=== PATIENT | female | born 1995 | race Caucasian/White ===

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

== ENCOUNTER 2017-02-26 16:41 | Emergency (ER) | payer MEDICAID ==
[2017-02-26 16:48] VITALS: BP 158/95
--- NOTE | 2017-02-26 16:54 | ED Physician Documentation ---
PD HPI UPPER EXT INJURY - Stated complaint Stated Complaint: LEFT THUMB PX - Chief complaint Chief Complaint: Ext Problem - History obtained from History obtained from: Patient - History of Present Illness Location: Left, Finger (thumb base and wrist) Type of injury: Other (has small kids at home and does frequent lifting/use of hands.). No: Fall, Twist Timing - onset: How many months ago (1) Timing - duration: Months (1) Timing - details: Gradual onset, Still present, Waxing and waning Worsened by: Moving (lifting left thumb or gripping/pulling down of thumb.) Associated symptoms: No: Weakness, Numbness, Swelling Similar symptoms before: Has not had sx before Recently seen: Clinic (Dx with tendonitis of EPL. Given velcro thumb spica splint but does not like to wear it as restricts use of her hand.) Review of Systems Constitutional: denies: Fever, Chills Skin: denies: Rash, Lesions Neurologic: denies: Focal weakness, Numbness PD PAST MEDICAL HISTORY - Past Medical History Musculoskeletal: None - Past Surgical History Past Surgical History: No - Present Medications Home Medications: Ambulatory Orders Medication Instructions Recorded Confirmed Ibuprofen [Motrin] 600 mg PO TID #30 tab 02/26/17 - Allergies Allergies/Adverse Reactions: Allergies Allergy/AdvReac Type Severity Reaction Status Date / Time No Known Drug Allergies Allergy Verified 02/26/17 16:49 - Social History Does the pt smoke?: Yes Smoking Status: Current every day smoker Does the pt drink ETOH?: No Does the pt have substance abuse?: No - Immunizations Immunizations are current?: Yes - POLST Patient has POLST: No PD ED PE NORMAL - Vitals Vital signs reviewed: Yes - General General: Alert and oriented X 3, No acute distress, Well developed/nourished - Derm Derm: Normal color, Warm and dry, No rash - Extremities Extremities: Other (left thumb and wrist tender along dorsal EPL area, with pain on flexion/stretch of thumb, and with extension against resistance. ) - Neuro Neuro: No motor deficit, No sensory deficit Results - Vitals Vitals: Oxygen O2 Source Room air - Rads (name of study) wrist/thumb Radiology: Prelim report reviewed, EMP read contemporaneously (no acute process) PD MEDICAL DECISION MAKING - ED course Complexity details: reviewed results, considered differential, d/w patient Departure - Departure Disposition: 01 Home, Self Care Clinical Impression: Tendinitis, de Quervain's Thumb pain Qualifiers: Laterality: left Qualified Code(s): M79.645 - Pain in left finger(s) Condition: Stable Record reviewed to determine appropriate education?: Yes Instructions: ED De Quervain Tenosynovitis, De Quervain Tenosynovitis Tx Follow-Up: Luiz Wilhelm MD [Provider Admit Priv/Credential] - Prescriptions: Ibuprofen [Motrin] 600 mg PO TID #30 tab Comments: Use the thumb splint you have with daily activity and use of your hands to reduce the irritation of the thumb tendon. You do not have to have the splint on all the time. Ibuprofen 600 mg 2-3 times a day for the next 7-10 days with food. To that add Tylenol if needed for pain. Recheck if not better in the next week and this can be with your primary care or with orthopedics. Discharge Date/Time: 02/26/17 17:56
[2017-02-26] MEDS ORDERED: NAPROXEN 250 MG TABLET PO STA (17:06)
[2017-02-26] MEDS ORDERED: NAPROXEN 250 MG TABLET PO ONE (17:21)
--- NOTE | 2017-02-26 17:50 | XRAY Preliminary Report ---
Exam: XR Wrist 4 View LT IMPRESSION: Normal wrist radiography. [facility] SITE ID: [id number]
--- NOTE | 2017-02-26 17:52 | XRAY Report ---
EXAM: LEFT WRIST RADIOGRAPHY EXAM DATE: 02/26/2017 05:30 PM. CLINICAL HISTORY: Thumb base/wrist pain for weeks. COMPARISON: None. TECHNIQUE: 4 views. FINDINGS: Bones: Normal. No fractures or bone lesions. Joints: Normal. No subluxations. Soft Tissues: Normal. No soft tissue swelling. IMPRESSION: Normal wrist radiography. [facility] Referring Provider Line: [phone] SITE ID: [id number]
== END 2017-02-26 17:56 | disposition home or self-care (01) ==
LOC: ED 16:41
DX: M65.4 Radial styloid tenosynovitis [de Quervain] (principal); M79.645 Pain in left finger(s)
CPT/HCPCS: 73110; 99283; A9270

== ENCOUNTER 2017-07-02 11:51 | Emergency (ER) | payer MEDICAID ==
[2017-07-02 11:58] VITALS: BP 128/87
[2017-07-02] MEDS ORDERED: LIDOCAINE VISCOUS 2% 15 ML UDC MM STA (13:15)
[2017-07-02] MEDS ORDERED: MAG HYDROX/AL HYDROX/SIMETH 30 ML UDC PO STA (13:15)
--- NOTE | 2017-07-02 13:17 | ED Physician Documentation ---
PD HPI ABD PAIN - Stated complaint Stated Complaint: ABD PX - Chief complaint Chief Complaint: Abd Pain - History obtained from History obtained from: Patient - History of Present Illness Timing - onset: Other (2 days of constant but waxing and waning epigastric pain radiating to high lateral upper quadrants. She has decreased appetite but does not note increased pain after eating. The pain has been constant. It is associated with nausea but no vomiting. She is chronically constipated without acute changes in her bowel movements. She has never had this before, no history of abdominal surgeries.) Review of Systems Ten Systems: 10 systems reviewed and negative Constitutional: denies: Fever, Chills Cardiac: denies: Chest pain / pressure, Palpitations Respiratory: denies: Dyspnea, Cough GI: reports: Abdominal Pain, Nausea, Constipation (chronic). denies: Vomiting PD PAST MEDICAL HISTORY - Past Medical History Past Medical History: No Musculoskeletal: None - Past Surgical History Past Surgical History: No - Present Medications Home Medications: Ambulatory Orders Medication Instructions Recorded Confirmed Ibuprofen [Motrin] 800 mg PO Q8H PRN #30 tablet 07/02/17 Omeprazole [PriLOSEC] 20 mg PO DAILY #14 capsule 07/02/17 Ondansetron HCl [Zofran] 4 mg PO Q6H PRN #10 tablet 07/02/17 - Allergies Allergies/Adverse Reactions: Allergies Allergy/AdvReac Type Severity Reaction Status Date / Time No Known Drug Allergies Allergy Verified 07/02/17 11:57 - Social History Does the pt smoke?: Yes Smoking Status: Current every day smoker Does the pt drink ETOH?: No Does the pt have substance abuse?: No - Family History Family history: reports: Non contributory - Immunizations Immunizations are current?: Yes - POLST Patient has POLST: No PD ED PE NORMAL - Vitals Vital signs reviewed: Yes - General General: Alert and oriented X 3, No acute distress - HEENT HEENT: PERRL, EOMI - Neck Neck: Supple, no meningeal sign, No bony TTP - Cardiac Cardiac: RRR, No murmur - Respiratory Respiratory: No respiratory distress, Clear bilaterally - Abdomen Abdomen: Normal bowel sounds, Soft, Other (Mild epigastric tenderness without significant right upper quadrant tenderness or Lindo sign.) - Derm Derm: Normal color, Warm and dry - Extremities Extremities: No edema, No calf tenderness / cord - Neuro Neuro: Alert and oriented X 3, Normal speech - Psych Psych: Normal mood, Normal affect Results - Vitals Vitals: Vital Signs - 24 hr 07/02/17 11:53 Temperature 36.6 C Heart Rate 98 Respiratory 20 Rate Blood Pressure 128/87 H O2 Saturation 100 Oxygen O2 Source Room air - Labs Labs: Laboratory Tests 07/02/17 07/02/17 07/02/17 13:05 13:28 13:28 WBC 10.6 RBC 5.40 Hgb 15.9 Hct 46.0 MCV 85.3 MCH 29.4 MCHC 34.5 RDW 13.0 Plt Count 391 MPV 9.2 Neut # 7.7 H Lymph # 2.3 Greer # 0.4 Eos # 0.1 Baso # 0.1 Absolute Nucleated RBC 0.01 Nucleated RBC % 0.1 Sodium 138 Potassium 3.8 Chloride 104 Carbon Dioxide 24 Anion Gap 10.0 BUN 9 Creatinine 0.6 Estimated GFR (MDRD) 129 Glucose 94 Calcium 9.9 Total Bilirubin 0.3 AST 24 ALT 21 Alkaline Phosphatase 92 Total Protein 8.9 H Albumin 4.9 Globulin 4.0 Albumin/Globulin Ratio 1.2 Lipase 19 L Urine Color YELLOW Urine Clarity HAZY Urine pH 6.0 Ur Specific [place] <=1.005 Urine Protein NEGATIVE Urine Glucose (UA) NEGATIVE Urine Ketones NEGATIVE Urine Occult Blood TRACE-INTA Urine Nitrite NEGATIVE Urine Bilirubin NEGATIVE Urine Urobilinogen 0.2 (NORMAL) Ur Leukocyte Esterase NEGATIVE Urine RBC 0-5 Urine WBC 0-3 Ur Epithelial Cells FEW Transitional Ur Squamous Epith Cells MANY Squamous H Urine Bacteria Many H Ur Microscopic Review INDICATED Urine Culture Comments NOT INDICATED Urine HCG, Qual NEGATIVE - Rads (name of study) Abd sono Radiology: EMP read contemporaneously (normal) CT A/P Radiology: EMP read contemporaneously (3.3cm R ovarian cyst, otherwise NAD) PD MEDICAL DECISION MAKING - ED course ED course: Upper abdominal pain, probably most consistent with gastritis, however she had no relief with a GI cocktail. She was driving and given the gastritis was now less likely this was followed by ibuprofen. Lab work was basically unremarkable. We discussed potentially watchful waiting at home versus a CT. She initially opted for watchful waiting at home after discussion of the risks of CT but then opted for the CT. This showed only a right ovarian cyst which is somewhat inconsistent with her location of pain. She remained nontender and well-appearing though. Departure - Departure Disposition: 01 Home, Self Care Clinical Impression: Abdominal pain Qualifiers: Abdominal location: epigastric Qualified Code(s): R10.13 - Epigastric pain Condition: Good Record reviewed to determine appropriate education?: Yes Instructions: ED Abdominal Pain Unkn Cause Follow-Up: MIR CALL MD [Provider Admit Priv/Credential] - (in 1 week if upper abd pain is persistent) [facility] [Provider Group] (for followup with consideration for repeat ultrasound in 6 weeks. Also for routine care, i.e pap smear.) Prescriptions: Ibuprofen [Motrin] 800 mg PO Q8H PRN #30 tablet PRN Reason: PAIN &/OR FEVER Omeprazole [PriLOSEC] 20 mg PO DAILY #14 capsule Ondansetron HCl [Zofran] 4 mg PO Q6H PRN #10 tablet PRN Reason: Nausea / Vomiting Comments: Return if worsening or if new symptoms develop. Follow-up with her neckties painter for routine care and reassessment of the right ovarian cyst. And if your upper abdominal pain is persistent, follow-up with the surgeon for evaluation for upper endoscopy. Your blood pressure was elevated today on check into the emergency department. This does not mean that you have hypertension, it is a common phenomenon to come to the emergency department and have elevated blood pressure. I recommend that you see your primary care physician within the week to have it rechecked when you are feeling better.
[2017-07-02 13:22] LABS: BILIRUBIN,URINE NEGATIVE (NEGATIVE); GLUCOSE, URINE (UA) NEGATIVE (NEGATIVE); KETONES,URINE (UA) NEGATIVE (NEGATIVE); LEUKOCYTE ESTERASE, URINE NEGATIVE (NEGATIVE); NITRITE,URINE NEGATIVE (NEGATIVE); OCCULT BLOOD,URINE TRACE-INTA (NEGATIVE); PROTEIN,URINE NEGATIVE (NEGATIVE); UROBILINOGEN,URINE 0.2 (NORMAL) E.U./dL (NORMAL)
[2017-07-02 13:23] LABS: CLARITY,URINE HAZY (CLEAR); HCG UR QUAL NEGATIVE
[2017-07-02 13:34] LABS: BACTERIA,URINE Many /HPF (None Seen); EPITHELIAL CELLS,UR FEW Transitional /HPF (<= Few); RBC,URINE 0-5 /HPF (0-5); SQUAMOUS EPITHELIAL CELL,UR MANY Squamous (<= Few)
[2017-07-02 13:35] LABS: BASOPHILS # (AUTO) 0.1 10^3/uL (0.0-0.1); BASOPHILS % (AUTO) 0.7 %; EOSINOPHILS # (AUTO) 0.1 10^3/uL (0.0-0.7); EOSINOPHILS % (AUTO) 0.7 %; HGB - HEMOGLOBIN 15.9 g/dL (12.0-16.0); LYMPHOCYTES # (AUTO) 2.3 10^3/uL (1.5-3.5); LYMPHOCYTES % (AUTO) 22.1 %; MEAN CORPUSCULAR HEMOGLOBIN 29.4 pg (27.0-31.0); MEAN CORPUSCULAR HGB CONC 34.5 g/dL (32.0-36.0); MEAN CORPUSCULAR VOLUME 85.3 fL (81.0-99.0); MEAN PLATELET VOLUME 9.2 fL (7.9-10.8); MONOCYTES # (AUTO) 0.4 10^3/uL (0.0-1.0); MONOCYTES % (AUTO) 4.1 %; NEUTROPHILS # (AUTO) 7.7 10^3/uL (1.5-6.6); NEUTROPHILS % (AUTO) 72.4 %; PLT - PLATELET COUNT 391 10^3/uL (130-450); WHITE BLOOD COUNT 10.6 x10^3/uL (4.8-10.8)
[2017-07-02 13:46] LABS: ALBUMIN 4.9 g/dL (3.2-5.5); ALBUMIN/GLOBULIN RATIO 1.2 (1.0-2.2); BILIRUBIN,TOTAL 0.3 mg/dL (0.2-1.0); CALCIUM 9.9 mg/dL (8.5-10.3); CREATININE 0.6 mg/dL (0.4-1.0); TOTAL PROTEIN 8.9 g/dL (6.7-8.2)
[2017-07-02] MEDS ORDERED: IBUPROFEN 800 MG TABLET PO STA (13:50)
--- NOTE | 2017-07-02 14:41 | Ultrasound Report ---
EXAM: ABDOMEN ULTRASOUND LIMITED, RUQ EXAM DATE: 07/02/2017 02:28 PM. CLINICAL HISTORY: Epigastric pain. COMPARISON: None. TECHNIQUE: Real-time scanning was performed with static images obtained. FINDINGS: Liver: Normal in size and echotexture. Main portal vein flow: Hepatopetal. Gallbladder: Normal. No stones, wall thickening, or sonographic Lindo's sign. Biliary System: CBD measures 3 mm. No intrahepatic or extrahepatic ductal dilatation. Other: Right kidney measures 11.4 cm without hydronephrosis. IMPRESSION: Normal. No cholelithiasis or cholecystitis. [facility] Referring Provider Line: [phone] SITE ID: [id number]
[2017-07-02] MEDS ORDERED: IOPAMIDOL-300 100 ML VIAL ONE (14:58)
[2017-07-02] MEDS ORDERED: IOPAMIDOL-300 100 ML VIAL IVP ONE (15:26)
--- NOTE | 2017-07-02 15:44 | CT Report ---
EXAM: CT ABDOMEN AND PELVIS EXAM DATE: 07/02/2017 03:27 PM. CLINICAL HISTORY: IV only, upper abd pain. COMPARISONS: None. TECHNIQUE: Routine helical CT imaging was performed through the abdomen and pelvis. IV contrast: 100M L OF ISOVUE 300. Enteric contrast: No. Reconstructions: Coronal and sagittal. In accordance with CT protocol optimization, one or more of the following dose reduction techniques w ere utilized for this exam: automated exposure control, adjustment of mA and/or KV based on patient s ize, or use of iterative reconstructive technique. FINDINGS: Lung Bases: Unremarkable. Liver: Normal. No masses. Gallbladder/Bile Ducts: Unremarkable. Spleen: Normal. Pancreas: Normal. Adrenal Glands: Normal. Kidneys: Normal. No masses or hydronephrosis. Peritoneal Cavity/Bowel: Normal. No free fluid, free air or adenopathy. No masses or acute inflammato ry process. The appendix is well visualized and normal. Pelvic Organs: Normal-appearing bladder, moderately distended. Findings consistent with a 3.3 cm righ t ovarian cyst. Vasculature: No aneurysms or other significant abnormality. Bones: No significant abnormality. Other: None. IMPRESSION: 1. Findings consistent with a 3.3 cm right ovarian cyst. 2. Otherwise, normal CT of the abdomen and pelvis. [facility] Referring Provider Line: [phone] SITE ID: [id number]
== END 2017-07-02 16:04 | disposition home or self-care (01) ==
LOC: ED 11:51
DX: R10.13 Epigastric pain (principal); R03.0 Elevated blood-pressure reading, without diagnosis of hypertension; N83.201 Unspecified ovarian cyst, right side; F17.200 Nicotine dependence, unspecified, uncomplicated
CPT/HCPCS: 36415; 74177; 76705; 80053; 81001; 81025; 83690; 85025; 99283; A9270; Q9967; 81003; 87086

== ENCOUNTER 2017-08-08 19:09 | Outpatient (CLI) | payer MEDICAID | END 2017-08-08 19:10 | disposition home or self-care (01) | LOC: LAB.R 19:09 | PROVIDERS: ATTEND Registered Nurse | DX: Z11.3 Encounter for screening for infections with a predominantly sexual mode of transmission (principal) | CPT/HCPCS: 87491; 87591 ==

== ENCOUNTER 2018-02-21 16:35 | Outpatient (CLI) | payer MEDICAID ==
--- NOTE | 2018-02-22 08:15 | Ultrasound Report ---
Reason: ENCTR FOR TEST, RESULT POSITIVE Procedure Date: 02/21/2018 Accession Number: [id number] / [id number] Procedure: US - OB First Trimester CPT Code: FULL RESULT: EXAM: FIRST TRIMESTER OBSTETRIC ULTRASOUND (Less than 11 weeks) EXAM DATE: 02/21/2018 05:39 PM. CLINICAL HISTORY: ENCTR FOR TEST, RESULT POSITIVE. LMP: 12/07/2017. COMPARISONS: None. TECHNIQUE: Transabdominal ultrasound examination with static image documentation. CLINICAL DATES: EGA 10 weeks 6 days with JAMES 09/13/2018 based on LMP. ASSESSMENT: Gestational Sac: Single intrauterine. Mean gestational sac diameter: 55 mm. Embryo: CRL (crown-rump length) 42.4 mm = 10 weeks 6 days. Cardiac activity: 167 beats per minute. Yolk sac: 4.8 mm. Amniotic fluid: Not accurately assessed at this gestational age. Early placenta: Not visible at this gestational age. Other: 1.9 x 2.3 x 1.2 cm perigestational fluid collection. MATERNAL STRUCTURES: Uterus: Anteverted. Unremarkable. Cervix: Closed. Right Ovary/Adnexa: Unremarkable. The ovary measures 3.5 x 2.6 x 2.4 cm, volume 11.4 cc. Left Ovary/Adnexa: Unremarkable. The ovary measures 3.9 x 1.8 x 2.5 cm, volume 9.1 cc. Free Fluid: None. Other: None. IMPRESSION: 1. Single viable intrauterine at EGA 10 weeks 6 days with JAMES 09/13/2018 based on crown-rump length, which is concordant with clinical dates. 2. Assigned dating is JAMES 09/13/2018 based on LMP (and current ultrasound ). 3. Findings consistent with a 1.9 x 2.3 x 1.2 cm perigestational hemorrhage. [facility]
== END 2018-02-21 16:36 | disposition home or self-care (01) ==
LOC: DI 16:35
PROVIDERS: ATTEND Obstetrics & Gynecology
DX: Z34.91 Encounter for supervision of normal pregnancy, unspecified, first trimester (principal)
CPT/HCPCS: 76801

== ENCOUNTER 2018-03-07 08:00 | Outpatient (CLI) | payer MEDICAID ==
[2018-03-07 16:23] LABS: MUDS CUTOFF CONCENTRATIONS CUTOFF CONC BELOW:
[2018-03-07 16:41] LABS: AMPHETAMINE SCREEN,URINE NEGATIVE (NEGATIVE); BENZODIAZEPINES SCREEN, URINE NEGATIVE (NEGATIVE); COCAINE SCREEN URINE NEGATIVE (NEGATIVE); METHADONE SCREEN, URINE NEGATIVE (NEGATIVE); METHAMPHETAMINES SCREEN, URINE NEGATIVE (NEGATIVE); OPIATE SCREEN, URINE NEGATIVE (NEGATIVE); OXYCODONE SCREEN, URINE NEGATIVE (NEGATIVE); PROPOXYPHENE SCREEN, URINE NEGATIVE (NEGATIVE); TRICYCLIC ANTIDEPRESSANT,URINE NEGATIVE (NEGATIVE)
== END 2018-03-07 08:01 | disposition home or self-care (01) ==
LOC: LAB.R 08:00
PROVIDERS: ATTEND Obstetrics & Gynecology
DX: Z36.9 Encounter for antenatal screening, unspecified (principal)
CPT/HCPCS: 80306; 87491; 87591

== ENCOUNTER 2018-03-10 10:42 | Outpatient (CLI) | payer MEDICAID ==
[2018-03-10 11:44] LABS: BILIRUBIN,URINE NEGATIVE (NEGATIVE); GLUCOSE, URINE (UA) NEGATIVE (NEGATIVE); KETONES,URINE (UA) NEGATIVE (NEGATIVE); LEUKOCYTE ESTERASE, URINE NEGATIVE (NEGATIVE); NITRITE,URINE NEGATIVE (NEGATIVE); OCCULT BLOOD,URINE NEGATIVE (NEGATIVE); PH,URINE 6.5 PH (5.0-7.5); PROTEIN,URINE NEGATIVE (NEGATIVE); UROBILINOGEN,URINE 0.2 (NORMAL) E.U./dL (NORMAL)
[2018-03-10 11:45] LABS: CLARITY,URINE HAZY (CLEAR)
[2018-03-10 11:58] LABS: TOTAL PROTEIN,URINE TIMED < 6 mg/dL
[2018-03-10 12:11] LABS: BASOPHILS # (AUTO) 0.1 10^3/uL (0.0-0.1); BASOPHILS % (AUTO) 0.7 %; EOSINOPHILS # (AUTO) 0.1 10^3/uL (0.0-0.7); EOSINOPHILS % (AUTO) 0.8 %; HGB - HEMOGLOBIN 12.9 g/dL (12.0-16.0); LYMPHOCYTES # (AUTO) 1.7 10^3/uL (1.5-3.5); LYMPHOCYTES % (AUTO) 23.8 %; MEAN CORPUSCULAR HEMOGLOBIN 29.7 pg (27.0-31.0); MEAN PLATELET VOLUME 8.3 fL (7.9-10.8); MONOCYTES # (AUTO) 0.5 10^3/uL (0.0-1.0); MONOCYTES % (AUTO) 6.4 %; NEUTROPHILS # (AUTO) 4.9 10^3/uL (1.5-6.6); NEUTROPHILS % (AUTO) 68.3 %; PLT - PLATELET COUNT 268 10^3/uL (130-450); RED BLOOD COUNT 4.34 10^6/uL (4.20-5.40); RED CELL DISTRIBUTION WIDTH 13.2 % (12.0-15.0); WHITE BLOOD COUNT 7.1 x10^3/uL (4.8-10.8)
[2018-03-10 12:16] LABS: BACTERIA,URINE Few /HPF (None Seen); RBC,URINE 0-5 /HPF (0-5); SQUAMOUS EPITHELIAL CELL,UR MANY Squamous (<= Few)
[2018-03-10 12:20] LABS: CREATININE 0.5 mg/dL (0.4-1.0); URIC ACID 4.4 mg/dL (2.6-7.2)
[2018-03-11 11:56] LABS: HIV AG/AB 4TH GEN NON-REACTIVE (NON-REACTIVE)
[2018-03-11 13:01] LABS: HEPATITIS B SURFACE ANTIGEN NON-REACTIVE (NON-REACTIVE)
[2018-03-11 13:02] LABS: HEPATITIS C ANTIBODY NON-REACTIVE (NON-REACTIVE)
== END 2018-03-10 10:43 | disposition home or self-care (01) ==
LOC: LAB 10:42
PROVIDERS: ATTEND Obstetrics & Gynecology
DX: Z36.89 Encounter for other specified antenatal screening (principal); Z36.9 Encounter for antenatal screening, unspecified
CPT/HCPCS: 36415; 81001; 81599; 82565; 82570; 82950; 83615; 84156; 84450; 84550; 85025; 86592; 86762; 86803; 86850; 86900; 86901; 87340; 87389

== ENCOUNTER 2018-04-04 15:53 | Outpatient (CLI) | payer MEDICAID | END 2018-04-04 15:54 | LOC: LAB.R 15:53 | PROVIDERS: ATTEND Obstetrics & Gynecology | DX: Z11.3 Encounter for screening for infections with a predominantly sexual mode of transmission (principal) | CPT/HCPCS: 87491; 87591 ==

== ENCOUNTER 2018-04-25 12:41 | Outpatient (CLI) | payer MEDICAID ==
--- NOTE | 2018-04-25 16:15 | Ultrasound Report ---
Reason: ENCTR FOR SCREENING Procedure Date: 04/25/2018 Accession Number: [id number] / [id number] Procedure: US - OB Detailed Eval CPT Code: FULL RESULT: EXAM: COMPLETE OBSTETRICAL ULTRASOUND EXAM DATE: 04/25/2018 02:58 PM. CLINICAL HISTORY: anatomic survey. COMPARISON: None. TECHNIQUE: Real-time sonographic evaluation of the fetus performed by the feed mill operator. Multiple passenger representative static images were saved for review. DATING: Established EGA 19 weeks 6 days with JAMES 09/13/2018 based on last menstrual period as provided by the obstetric physician. EGA 21 weeks 4 days with JAMES 09/01/2018 based on the current ultrasound. GENERAL EVALUATION Lock . Cardiac activity: 139 bpm. movement: Visualized. Presentation: Variable. Placenta: Anterior position. No evidence for previa. Umbilical cord: 3 vessel cord. Central placental cord origin. Amniotic fluid: 13.7, SHELIA MVP 3.7 cm. BIOMETRY Bi-Parietal Diameter (BPD): 5.3 cm, 22 weeks 0 days. Head Circumference (HC): 19.2 cm, 21 weeks 3 days. Abdominal Circumference (AC): 17 cm, 22 weeks 0 days. Femur Length (FL): 3.4 cm, 20 weeks 6 days. Estimated Weight: 426 g, 97th percentile for 19 weeks 6 days. ANATOMY The intracranial structures, profile, face/nose/lips, spine, 4 chamber heart and outflow tracts, stomach, abdominal wall and cord insertion, diaphragm, kidneys, bladder, and extremities were visualized and demonstrate no abnormality. MATERNAL STRUCTURES Uterus: Unremarkable. Cervix: Long and closed. Transabdominal length 5.2 cm. Right ovary/adnexa: Unremarkable. Left ovary/adnexa: Unremarkable. Free fluid: None. IMPRESSION: 1. Lock live intrauterine with gestational age 19 weeks 6 days based on obstetric physician supplied last menstrual period. 2. Estimated weight is at the 97th percentile for the established due date. 3. Normal anatomic survey. No anatomic abnormalities are detected at this time. [facility]
== END 2018-04-25 12:42 | disposition home or self-care (01) ==
LOC: DI 12:41
PROVIDERS: ATTEND Obstetrics & Gynecology
DX: Z36.9 Encounter for antenatal screening, unspecified (principal); Z3A.19 19 weeks gestation of pregnancy
CPT/HCPCS: 76811

== ENCOUNTER 2018-07-16 15:13 | Outpatient (CLI) | payer MEDICAID ==
--- NOTE | 2018-07-16 16:33 | Ultrasound Report ---
Reason: UTERINE SIZE DATE DISCREPANCY, ANTEPARTUM, UNSP TR Procedure Date: 07/16/2018 Accession Number: [id number] / [id number] Procedure: US - OB F/U or Repeat CPT Code: FULL RESULT: EXAM: FOLLOW-UP OBSTETRICAL ULTRASOUND. EXAM DATE: 07/16/2018 03:47 PM. CLINICAL HISTORY: Uterine size/date discrepancy. COMPARISON: 04/25/2018. TECHNIQUE: Real-time sonographic evaluation of the fetus performed by the brake reliner. Multiple territory representative static images were saved for review. DATING: Established EGA 31 weeks 4 days with JAMES 09/13/2018 based on LMP. EGA 35 weeks 0 days with JAMES 08/20/2018 based on prior ultrasound 04/25/2018. EGA 34 weeks 4 days based on the current ultrasound. GENERAL EVALUATION Lock . Cardiac activity: 124 bpm. movement: Visualized. Presentation: Cephalic. Placenta: Anterior position. Amniotic fluid: Normal. SHELIA 16.7 cm. MVP 6.5 cm. BIOMETRY Bi-Parietal Diameter (BPD): 8.8 cm, 35 weeks 5 days. Head Circumference (HC): 32.4 cm, 36 weeks 5 days. Abdominal Circumference (AC): 31.7 cm, 35 weeks 4 days. Femur Length (FL): 6.1 cm, 31 weeks 5 days. Estimated Weight: 2496 g, greater than 97th percentile for 31 weeks 4 days. MATERNAL STRUCTURES Cervix long and closed. IMPRESSION: 1. Lock live intrauterine with gestational age 31 weeks 4 days based on stated LMP. 2. Estimated weight is greater than 97th percentile for assigned dating. 3. Normal interval growth compared to previous ultrasound of 04/25/2018. [facility]
== END 2018-07-16 15:14 | disposition home or self-care (01) ==
LOC: DI 15:13
PROVIDERS: ATTEND Obstetrics & Gynecology
DX: O26.843 Uterine size-date discrepancy, third trimester (principal); Z3A.31 31 weeks gestation of pregnancy
CPT/HCPCS: 76816

== ENCOUNTER 2018-08-02 08:00 | Outpatient (CLI) | payer MEDICAID ==
[2018-08-02 18:58] LABS: HGB - HEMOGLOBIN 12.8 g/dL (12.0-16.0); MEAN CORPUSCULAR HEMOGLOBIN 28.5 pg (27.0-31.0); MEAN CORPUSCULAR HGB CONC 32.8 g/dL (32.0-36.0); MEAN CORPUSCULAR VOLUME 86.9 fL (81.0-99.0); MEAN PLATELET VOLUME 9.2 fL (7.9-10.8); RED BLOOD COUNT 4.5 10^6/uL (4.20-5.40); RED CELL DISTRIBUTION WIDTH 13.3 % (12.0-15.0); WHITE BLOOD COUNT 14.5 x10^3/uL (4.8-10.8)
== END 2018-08-02 23:59 | disposition home or self-care (01) ==
LOC: LAB.N 08:00
PROVIDERS: ATTEND Obstetrics & Gynecology
DX: Z36.88 Encounter for antenatal screening for fetal macrosomia (principal)
CPT/HCPCS: 36415; 82950; 85027; 86850

== ENCOUNTER 2018-08-15 13:06 | Outpatient (CLI) | payer MEDICAID ==
--- NOTE | 2018-08-15 16:25 | Ultrasound Report ---
Reason: ENCOUNTER FOR SCREENING FOR MACROS Procedure Date: 08/15/2018 Accession Number: [id number] / [id number] Procedure: US - OB F/U or Repeat CPT Code: FULL RESULT: EXAM: FOLLOW-UP OBSTETRICAL ULTRASOUND EXAM DATE: 08/15/2018 01:43 PM. CLINICAL HISTORY: Encounter for screening for macrosomia. COMPARISON: OB follow-up or repeat 07/16/2018 3:26 PM. TECHNIQUE: Real-time sonographic evaluation of the fetus performed by the miller helper distillery. Multiple personal service representative static images were saved for review. DATING: Established EGA 35 weeks 6 days with JAMES 09/13/2018 based on solid center winder. EGA 38 weeks 4 days with JAMES 08/25/2018 based on the current ultrasound. GENERAL EVALUATION Lock . Cardiac activity: 138 bpm. movement: Visualized. Presentation: Cephalic. Placenta: Anterior position. Amniotic fluid: Normal. SHELIA 16.7 cm. MVP 7.8 cm. BIOMETRY Bi-Parietal Diameter (BPD): 9.8 cm, 40 weeks 2 days. Head Circumference (HC): 35.0 cm, 40 weeks 5 days. Abdominal Circumference (AC): 35.7 cm, 39 weeks 4 days. Femur Length (FL): 6.6 cm, 33 weeks 5 days. Estimated Weight: 3545 g, greater than the 97th percentile for 35 weeks 6 days. MATERNAL STRUCTURES Long and closed cervix, 4.7 cm. IMPRESSION: 1. Lock live intrauterine with gestational age 35 weeks 6 days based on solid center winder. 2. Estimated weight is within expected limits for assigned dating. 3. Persistent macrosomia, similar percentile to 07/16/2018. [facility]
== END 2018-08-15 13:07 | disposition home or self-care (01) ==
LOC: DI 13:06
PROVIDERS: ATTEND Obstetrics & Gynecology
DX: Z36.88 Encounter for antenatal screening for fetal macrosomia (principal); O36.63X0 Maternal care for excessive fetal growth, third trimester, not applicable or unspecified; Z3A.35 35 weeks gestation of pregnancy
CPT/HCPCS: 76816

== ENCOUNTER 2018-08-16 16:14 | Outpatient (CLI) | payer MEDICAID | END 2018-08-16 23:59 | disposition home or self-care (01) | LOC: LAB.R 16:14 | PROVIDERS: ATTEND Obstetrics & Gynecology | DX: Z33.1 Pregnant state, incidental (principal) | CPT/HCPCS: 87491; 87591; 87797 ==

== ENCOUNTER 2018-09-05 16:08 | Outpatient (CLI) | payer MEDICAID ==
[2018-09-05 16:25] LABS: BASOPHILS # (AUTO) 0.1 10^3/uL (0.0-0.1); BASOPHILS % (AUTO) 0.4 %; EOSINOPHILS # (AUTO) 0.1 10^3/uL (0.0-0.7); EOSINOPHILS % (AUTO) 0.7 %; HGB - HEMOGLOBIN 12.9 g/dL (12.0-16.0); LYMPHOCYTES % (AUTO) 16.4 %; MEAN CORPUSCULAR HEMOGLOBIN 27.8 pg (27.0-31.0); MEAN CORPUSCULAR HGB CONC 32.8 g/dL (32.0-36.0); MEAN CORPUSCULAR VOLUME 84.8 fL (81.0-99.0); MEAN PLATELET VOLUME 9.7 fL (7.9-10.8); MONOCYTES # (AUTO) 0.5 10^3/uL (0.0-1.0); NEUTROPHILS # (AUTO) 9.5 10^3/uL (1.5-6.6); NEUTROPHILS % (AUTO) 78.5 %; PLT - PLATELET COUNT 274 10^3/uL (130-450); RED BLOOD COUNT 4.63 10^6/uL (4.20-5.40); WHITE BLOOD COUNT 12.1 x10^3/uL (4.8-10.8)
== END 2018-09-05 16:09 | disposition home or self-care (01) ==
LOC: LAB 16:08
PROVIDERS: ATTEND Obstetrics & Gynecology
DX: Z01.812 Encounter for preprocedural laboratory examination (principal); Q18.4 Macrostomia
CPT/HCPCS: 36415; 85025; 86850; 86900; 86901

== ENCOUNTER 2018-09-06 07:18 | Inpatient (IN) | payer MEDICAID ==
[2018-09-06] MEDS ORDERED: LACTATED RINGERS 1,000 ML IV ONE ×3 (07:58→09:03)
[2018-09-06] MEDS ORDERED: LACTATED RINGERS 1,000 ML IV SCH ×2 (08:00→11:00)
--- NOTE | 2018-09-06 08:04 | ANESTHESIA ---
Pre-Anesthesia VS, & Labs - Diagnosis Macrosomia - Procedure Primary C/S with bilateral salpingectomy Vital Signs: Temp Pulse Resp BP Pulse Ox 37.1 C 78 18 122/79 09/06/18 07:52 09/06/18 07:52 09/06/18 07:52 09/06/18 07:52 Height 5 ft 3 in Body Mass Index 30.1 85Kg - NPO >8 hours - Is Patient ?: Yes - Lab Results Lab results reviewed: Yes Home Medications and Allergies Active Medications Lactated Ringer's (Lr) 1,000 mls @ 125 mls/hr IV .Q8H JUMA PNV at home Allergies/Adverse Reactions: Allergies Allergy/AdvReac Type Severity Reaction Status Date / Time No Known Drug Allergies Allergy Verified 07/02/17 11:57 Anes History & Medical History - Anesthetic History Anesthesia Complications: reports: Post-Operative Nausea/Vomiting Family history of Anesthesia Complications: Denies Family history of Malignant Hyperthermia: Denies - Medical History Cardiovascular: reports: None Pulmonary: reports: None Gastrointestinal: reports: GERD (During ) Urinary: reports: None Neuro: reports: None Musculoskeletal: reports: None Endocrine/Autoimmune: reports: None Blood Disorders: reports: None Smoking Status: Current every day smoker Psychosocial: reports: No issues indicated - Surgical History Orthopedic: Other (Right elbow dislocation) - Obstetrical History : 7 Parity: 1 Events: positive: None Complications: positive: None Problems: Macrosomia Exam General: Alert, Oriented x3, Cooperative, No acute distress Dental: WNL Mouth Openin Fingerbreadth Neck Mobility: Normal Mallampati classification: II Thyromental Distance: 4-6 cm Respiratory: Lungs clear, Normal breath sounds, No respiratory distress, No accessory muscle use Cardiovascular: Regular rate, Normal S1, Normal S2, No murmurs Mental/Cognitive Status: Alert/Oriented X3, Normal for patient Plan Anesthesia Type: Spinal Consent for Procedure(s) Verified and Reviewed: Yes Code Status: Attempt Resuscitation ASA classification: 2-Mild systemic disease Is this case an emergency?: No
[2018-09-06] MEDS ORDERED: ceFAZolin 2 GM in SODIUM CHLORIDE 0.9% MINIBAG 100 ML IV SCH (08:17)
[2018-09-06] MEDS ORDERED: SODIUM CHLORIDE 0.9% 100 ML BAG IV ONE (09:48)
[2018-09-06] MEDS ORDERED: SODIUM CHLORIDE 0.9% 500 ML BAG IV ONE (09:48)
[2018-09-06] MEDS ORDERED: PHENYLEPHRINE 50 MG/5 ML VIAL IV ONE (09:48)
[2018-09-06] MEDS ORDERED: MORPHINE PF 5 MG/10 ML AMP EP ONE (09:48)
[2018-09-06] MEDS ORDERED: OXYTOCIN 10 UNIT/ML VIAL IV ONE (09:48)
[2018-09-06] MEDS ORDERED: fentaNYL 100 MCG/2 ML VIAL IVP ONE (09:48)
[2018-09-06] MEDS ORDERED: ceFAZolin 2 GM/50 ML 2 GM/50 ML BAG IV ONE (09:48)
[2018-09-06] MEDS ORDERED: KETOROLAC 30 MG/ML VIAL IVP ONE (09:48)
[2018-09-06] MEDS ORDERED: ACETAMINOPHEN 1,000 MG/100 ML 100 ML IV ONE (09:48)
[2018-09-06] MEDS ORDERED: SODIUM CHLORIDE 0.9% 500 ML IV ONE (09:59)
[2018-09-06] MEDS ORDERED: diphenhydrAMINE 25 MG CAPSULE PO PRN (10:10)
[2018-09-06] MEDS ORDERED: oxyCODONE 5 MG TABLET PO PRN (10:10)
[2018-09-06] MEDS ORDERED: ONDANSETRON 4 MG/2 ML VIAL IVP PRN (10:10)
--- NOTE | 2018-09-06 10:18 | OPERATIVE REPORT ---
Operative Report - General Admit Date: 09/06/18 Planned Procedure: PLTC/S with bilateral salpingectomy Pre-Op Diagnosis: 39.0 weeks Suspected macrosomia, undesired fertility Procedure Performed: PLTS/C with Bilateral Salpingectomy Post Op Diagnosis: Same - Procedure Note Primary Surgeon: Dylan Early MD Secondary Surgeon: Nena Connelly MD Anesthesia Provider: Boogie Yanes CRNA Anesthesia Technique: Spinal Pathology: Bilateral Tubes IV Fluids (mL): 1,100 Estimated Blood Loss (mL): 600 Urine Output (mL): 50 Indications: Ultrasound showed fetus 93% tile Findings: live infant SANGEETHA Complications: None - Other Other Information/Narrative: #[id number]
[2018-09-06] MEDS ORDERED: OXYTOCIN/SODIUM CHLORIDE 500 ML IV ONE (10:36)
[2018-09-06] MEDS ORDERED: OXYTOCIN/SODIUM CHLORIDE 500 ML IV SCH (13:00)
--- NOTE | 2018-09-06 13:57 | HISTORY & PHYSICAL EXAMINATION ---
History of Present Illness - History of Present Illness HPI Comment/Other: CC: feels like baby is going to fall out. HPI: Has felt this way when she woke up. No UC but doesn't feel them until she is ready to push. No VB, no LOF. +emesis, +nausea. Chronic MONZON 7/10 intesnity all day long. ROS: no fevers or myalgia PMH: ADHD, depression, anxiety. 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 No alcohol or drug use. FH: no anesthesia complications, 1/2 aunt with a 32w delivery Vax: declines all vax, has not recieved any in her life O: AVSS Cat 1 NST [place] negative CL 2.0cm, vertex SVE 1 (or more), 20, -3, medium, posteroir A/P 23yo with last 9mos ago, at 29.5w with spontaneous cervical length shortening and cervical dilation. With her early gestational age will transport to NICU even in absence of current cervical change. BMZ, now History - Past Medical History Cardiovascular: reports: None Respiratory: reports: None Neuro: reports: None Endocrine/Autoimmune: reports: None GI: reports: GERD (During ) : reports: None Musculoskeletal: reports: None MRSA Hx?: No - Past Surgical History Ortho: reports: Other (Right elbow dislocation) - POLST Patient has POLST: No Meds/Allgy - Home Medications Home Medications: Ambulatory Orders Medication Instructions Recorded Confirmed Ibuprofen [Motrin] 800 mg PO Q8H PRN #30 tablet 07/02/17 Omeprazole [PriLOSEC] 20 mg PO DAILY #14 capsule 07/02/17 Ondansetron HCl [Zofran] 4 mg PO Q6H PRN #10 tablet 07/02/17 - Allergies Allergies/Adverse Reactions: Allergies Allergy/AdvReac Type Severity Reaction Status Date / Time No Known Drug Allergies Allergy Verified 07/02/17 11:57 Exam - Vital Signs Vital Signs: Vital Signs x48h Temp Pulse Pulse Resp BP BP Pulse Ox 09/06/18 12:10 99.0 F 85 18 136/67 H 09/06/18 11:40 99.0 F 18 09/06/18 11:10 99.0 F 80 18 137/88 H 09/06/18 10:40 99.0 F 80 18 138/83 H 100 09/06/18 10:35 79 22 130/87 H 98 09/06/18 10:30 87 27 H 131/92 H 100 09/06/18 10:25 99.1 F 82 23 129/87 H 100 09/06/18 10:20 109 H 33 H 129/87 H 100 09/06/18 10:15 97.7 F 112 H 25 H 131/83 H 100 09/06/18 10:10 99.0 F 70 83 18 136/78 H 122/79 100 09/06/18 07:52 98.8 F 78 18 122/79 Conclusion/Plan - Lab Results Lab results reviewed: Yes
[2018-09-06] MEDS: KETOROLAC 30 MG/ML VIAL IVP SCH ×2 (15:30→21:34)
[2018-09-06] MEDS: SIMETHICONE CHEW 80 MG TABLET PO SCH ×2 (15:39→21:34)
[2018-09-06] MEDS: ACETAMINOPHEN 500 MG TABLET PO SCH (18:00)
[2018-09-06] MEDS: DOCUSATE SODIUM 100 MG CAPSULE PO SCH (21:34)
[2018-09-06] MEDS: SODIUM CHLORIDE FLUSH 0.9% 10 ML SYRINGE IVP SCH (21:35)
[2018-09-06] MEDS: SODIUM CHLORIDE FLUSH 0.9% 10 ML SYRINGE IVP PRN (21:35)
[2018-09-07] MEDS: ACETAMINOPHEN 500 MG TABLET PO SCH ×3 (00:13→21:22)
[2018-09-07] MEDS: KETOROLAC 30 MG/ML VIAL IVP SCH ×2 (03:56→04:01)
[2018-09-07] MEDS: SODIUM CHLORIDE FLUSH 0.9% 10 ML SYRINGE IVP SCH (03:56)
[2018-09-07] MEDS: SODIUM CHLORIDE FLUSH 0.9% 10 ML SYRINGE IVP PRN (03:56)
--- NOTE | 2018-09-07 08:42 | PROVIDER PROGRESS NOTE ---
Subjective - General Admit Date: 09/06/18 Procedure Date: 09/06/18 Post Op Days: 1 Procedure Performed: PLTC/S with bilateral salpingectomy - Review of Systems Wound/Incisions: positive: Dressing dry and intact General: positive: No symptoms, Fever Genitourinary: negative: Flank pain Objective - Patient Data Reviewed Vital Signs: Yes Vital Signs: Vital Signs x48h Pulse Resp BP Pulse Ox 09/07/18 03:48 70 16 127/74 97 Weight: Weight 09/05/18 09/06/18 09/07/18 23:59 23:59 23:59 Weight (kg) 188.6 kg Intake & Output: Intake and Output Totals x24h 09/05/18 09/06/18 09/07/18 23:59 23:59 23:59 Intake Total 450 Output Total 1230 475 Balance -780 -475 - Lab Results Lab Results: 09/07/18 06:25 Other Lab Results: Lab Results x24hrs 09/07/18 Range/Units 06:25 Hgb 11.5 L (12.0-16.0) g/dL - Current Medications Current Medications: Current Medications Generic Name Dose Route Start Last Admin Trade Name Freq PRN Reason Stop Dose Admin Acetaminophen 1,000 mg 09/06/18 11:00 09/07/18 00:13 Tylenol PO 1,000 mg Q8H JUMA Administration Docusate Sodium 100 mg 09/06/18 21:00 09/06/18 21:34 Colace 100mg Capsule PO 100 mg BID JUMA Administration Lactated Ringer's 1,000 mls @ 125 mls/hr 09/06/18 08:00 09/06/18 11:35 Lr IV 125 mls/hr .Q8H JUMA Administration Simethicone 80 mg 09/06/18 14:00 09/06/18 21:34 Mylicon PO 80 mg TID JUMA Administration Sodium Chloride 10 ml 09/06/18 10:10 09/07/18 03:56 Normal Saline Flush 0.9% IVP 10 ml PRN PRN Administration NEEDED PER PROVIDER ORDERS Sodium Chloride 10 ml 09/06/18 17:00 09/07/18 03:56 Normal Saline Flush 0.9% IVP 10 ml 0100,0900,1700 JUMA Administration - Physical Exam Wound/Incisions: positive: Dressing dry and intact (Wound Vac) General Appearance: positive: No acute distress, Alert Respiratory: positive: Chest non-tender, No respiratory distress, Breath sounds nml Cardiovascular: positive: Regular rate & rhythm, No murmur, No gallop Abdomen: positive: Non-tender, Nml bowel sounds, Mass (U-1) Back: negative: CVA tenderness (R), CVA tenderness (L) Skin: positive: Color nml, No rash Extremities: positive: Non-tender. negative: Pedal edema, Calf tenderness, Denton's sign/cords Neurologic/Psychiatric: positive: Oriented x3 Impression/Plan - Problem List Problem List: POD #1 Progressing well Passing flatus, voiding, regular diet Anticipate release tomorrow.
[2018-09-07] MEDS: IBUPROFEN 600 MG TABLET PO SCH ×3 (09:21→21:22)
[2018-09-07] MEDS: DOCUSATE SODIUM 100 MG CAPSULE PO SCH ×2 (09:21→21:24)
--- NOTE | 2018-09-07 09:59 | HISTORY & PHYSICAL EXAMINATION ---
DATE OF SERVICE: 09/06/2018 Physician: Dylan Early MD IDENTIFICATION: A 30-year-old G1, P0 female whose EDC is 12/02/2018, making her 32 weeks EGA. CHIEF COMPLAINT: Gestational hypertension. HISTORY OF PRESENT ILLNESS: Patient was seen in the clinic yesterday, at which time her blood pressure was 155/110. She had been recording home blood pressures, and these have been ranging in the 120s-140s over 70s-90s. She was sent over to Labor and Delivery for blood pressure monitoring. Her pressures remained high, so for this reason, she was administered labetalol 100 mg, and this was administered q.6 hours. Her blood pressure normalized since then. She denies any headaches. She has a family history of mother with preeclampsia, as well as a sister who has had problems with preeclampsia. This has been complicated by gestational diabetes with good control. PAST MEDICAL HISTORY: Gestational diabetes. PAST SURGICAL HISTORY: [place] teeth. ALLERGIES: NONE KNOWN. CURRENT MEDICATIONS 1. Labetalol 2. vitamins. SOCIAL HISTORY: Patient denies the use of alcohol, tobacco, or street drugs. She has a significant other who is involved. REVIEW OF SYSTEMS: Negative. PHYSICAL EXAMINATION GENERAL: A well-developed, well-nourished white female, in no acute distress. She has multiple tattoos. HEENT: Pupils are equal, round. Extraocular muscles are intact. Pharynx not palpably enlarged. HEART: Regular rate and rhythm without murmur. LUNGS: Lung boland are clear with no rales or wheezes. ABDOMEN: Soft, nontender: Gravid, roughly 32 cm. EXTREMITIES: DTRs are plus 1. There is no evidence of any clonus. She does have some swelling. LABORATORIES On admission, her white count was 14.8; it has increased to 15.6. Her hemoglobin has remained steady at 13.2-13.5. Platelets are 337-347. Chemistries: She has hyponatremia of 132; however, her potassium is normal. Her creatinine has gone from 0.7 to 0.6. Uric acid on admission was 5.7, has gone up to 5.9. LFTs are normal. Her creatinine has remained at 0.2, which does not qualify as preeclampsia at this time. IMPRESSION 1. A 30-year-old G1, P0 female. 2. Gestational hypertension with severe components. 3. Gestational diabetes. PLAN: After discussing with Dr. Donald(sp), it was decided to continue her with her labetalol; she may change this to 200 mg twice a day or 100 mg 4 times a day. We will initiate twice weekly NSTs, as well as ultrasounds weekly for SHELIA and growth. She has received her first shot of betamethasone and is scheduled for a second. We will be following her outpatient with twice weekly NSTs, ultrasounds for growth, as well as AFIs, as well as umbilical velocimetry. The patient will monitor her blood pressures at home 3 times a day. She is to call should her pressures persist over 150/100. TD: 09/06/2018 16:30 JAVIER
[2018-09-07] MEDS: SIMETHICONE CHEW 80 MG TABLET PO SCH (14:48)
[2018-09-08] MEDS: SIMETHICONE CHEW 80 MG TABLET PO SCH (05:18)
[2018-09-08] MEDS: IBUPROFEN 600 MG TABLET PO SCH (05:18)
[2018-09-08] MEDS: ACETAMINOPHEN 500 MG TABLET PO SCH (05:19)
--- NOTE | 2018-09-08 09:10 | PROVIDER PROGRESS NOTE ---
Subjective - General Admit Date: 09/06/18 Procedure Date: 09/06/18 Post Op Days: 2 Procedure Performed: PLTC/S with bilateral salpingectomy - Review of Systems Wound/Incisions: positive: Dressing dry and intact (functioning well) General: positive: No symptoms, Fever Gastrointestinal: positive: Flatus Genitourinary: negative: Flank pain Objective - Patient Data Reviewed Vital Signs: Yes Vital Signs: Vital Signs x48h Temp Pulse Resp BP Pulse Ox 09/08/18 09:05 36.6 C 90 18 130/82 H 94 09/08/18 05:05 36.9 C 70 18 132/88 H 98 09/08/18 01:21 36.9 C 90 16 127/78 99 Weight: Weight 09/06/18 09/07/18 09/08/18 23:59 23:59 23:59 Weight (kg) 188.6 kg Intake & Output: Intake and Output Totals x24h 09/06/18 09/07/18 09/08/18 23:59 23:59 23:59 Intake Total 1606.25 Output Total 1230 475 Balance 376.25 -475 - Lab Results Lab Results: 09/07/18 06:25 - Current Medications Current Medications: Current Medications Generic Name Dose Route Start Last Admin Trade Name Freq PRN Reason Stop Dose Admin Acetaminophen 1,000 mg 09/06/18 11:00 09/08/18 05:19 Tylenol PO 1,000 mg Q8H JUMA Administration Docusate Sodium 100 mg 09/06/18 21:00 09/07/18 21:24 Colace 100mg Capsule PO 100 mg BID JUMA Administration Lactated Ringer's 1,000 mls @ 125 mls/hr 09/06/18 08:00 09/06/18 16:50 Lr IV 0 mls/hr .Q8H JUMA Infusion Ibuprofen 600 mg 09/07/18 09:00 09/08/18 05:18 Motrin PO 600 mg Q6HR JUMA Administration Simethicone 80 mg 09/06/18 14:00 09/08/18 05:18 Mylicon PO 80 mg TID JUMA Administration Sodium Chloride 10 ml 09/06/18 10:10 09/07/18 03:56 Normal Saline Flush 0.9% IVP 10 ml PRN PRN Administration NEEDED PER PROVIDER ORDERS Sodium Chloride 10 ml 09/06/18 17:00 09/07/18 03:56 Normal Saline Flush 0.9% IVP 10 ml 0100,0900,1700 [facility] Administration - Physical Exam Wound/Incisions: positive: Dressing dry and intact General Appearance: positive: No acute distress, Alert Respiratory: positive: Chest non-tender, No respiratory distress, Breath sounds nml Cardiovascular: positive: Regular rate & rhythm, No murmur, No gallop Abdomen: positive: Non-tender, No organomegaly, Nml bowel sounds, Mass (U-2) Skin: positive: Color nml, No rash, Warm, Dry Impression/Plan - Problem List Problem List: POD # 2 S/P PLTC/S with Salpingectomy Excellent progress Send Home Discharge Meds Oxycodone 5 mg # 5 Motrin 600 Mg Colace 100 mg Reviewed Breast feeding
--- NOTE | 2018-09-08 09:15 | Discharge Plan ---
Discharge Plan Disposition: 01 Home, Self Care Condition: Good Diet: Regular Shower Restrictions: No Driving Restrictions: Yes (not while taking Narcotics) Weight Bearing: Full Weight No Smoking: If you smoke, Please STOP! Call for help.
--- NOTE | 2018-09-08 11:08 | DISCHARGE SUMMARY ---
Physician: Dylan Early MD DATE OF ADMISSION: 09/06/2018 DATE OF DISCHARGE: 09/08/2018 ADMITTING DIAGNOSES 1. Gestation at 39 weeks. 2. Undesired fertility. 3. Suspected macrosomia. DISCHARGE DIAGNOSES 1. Undesired fertility. 2. Low transverse section, weighed 8 pounds 10 ounces. PROCEDURES PERFORMED 1. Primary low transverse section. 2. Bilateral salpingectomy. PRESENTING HISTORY: Patient is a 23-year-old G2, P1 female who presented for suspected macrosomia. She had an ultrasound done at 36 weeks, which estimated her weight at 93 percentile. Following discussion with Dr. Blake, it was decided to proceed on with section. Patient desired no further children and had shown a very strong persistent steadfast decision that she wanted her tubes tied. I have reviewed with her the alternate forms of contraception, as well as the possibility of changing her mind. She still remained resolute in her decision. LABORATORIES: Preop CBC was within normal limits. Her postop hemoglobin fell to 11.8. HOSPITAL COURSE: Patient was taken to the operating room, at which time a primary low transverse section was performed without difficulty. The live male infant was delivered weighing 8 pounds 10 ounces. Following delivery of the infant and ensuring it was in good health, patient was once again questioned as to whether she wanted her tubes tied. She still expressed the same desire. Bilateral salpingectomy was performed without incident. Her course has been unremarkable. Her diet has been advanced. She is passing flatus, voiding. She is having good pain control on oral medications. We are discharging to home today on discharge medications of: 1. Oxycodone 5 mg #5. 2. Motrin 600 mg #30. 3. Colace 100 mg. We discussed as well as signs and symptoms of infection. TD[facility]08/2018 09[facility]
[2018-09-08] MEDS: DOCUSATE SODIUM 100 MG CAPSULE PO SCH (11:35)
[2018-09-08 15:16] VITALS: BP 126/78
== END 2018-09-08 12:00 | disposition home or self-care (01) | DRG 785 ==
LOC: FBP 07:18
PROVIDERS: ADMIT Obstetrics & Gynecology; ATTEND Obstetrics & Gynecology
PROC: 0UT70ZZ Resection of Bilateral Fallopian Tubes, Open Approach (ICD-10-PCS; 2018-09-06)
PROC: 10D00Z1 Extraction of Products of Conception, Low, Open Approach (ICD-10-PCS; principal; 2018-09-06 08:30)
DX: O36.63X0 Maternal care for excessive fetal growth, third trimester, not applicable or unspecified (principal); Z3A.39 39 weeks gestation of pregnancy; Z37.0 Single live birth; Z30.2 Encounter for sterilization; F90.9 Attention-deficit hyperactivity disorder, unspecified type; O99.344 Other mental disorders complicating childbirth; F41.9 Anxiety disorder, unspecified; K21.9 Gastro-esophageal reflux disease without esophagitis; O99.334 Smoking (tobacco) complicating childbirth; O13.4 Gestational [pregnancy-induced] hypertension without significant proteinuria, complicating childbirth; O24.429 Gestational diabetes mellitus in childbirth, unspecified control
CPT/HCPCS: 36415; 85018; A9270; J0131; J0690; J7120

== ENCOUNTER 2020-06-25 22:23 | Emergency (ER) | payer MEDICAID ==
[2020-06-25 22:57] LABS: BASOPHILS # (AUTO) 0.1 10^3/uL (0.0-0.1); BASOPHILS % (AUTO) 0.7 %; EOSINOPHILS % (AUTO) 0.3 %; HCT - HEMATOCRIT 44.9 % (37.0-47.0); HGB - HEMOGLOBIN 14.9 g/dL (12.0-16.0); LYMPHOCYTES # (AUTO) 1.5 10^3/uL (1.5-3.5); LYMPHOCYTES % (AUTO) 19.6 %; MEAN CORPUSCULAR HEMOGLOBIN 29.4 pg (27.0-31.0); MEAN CORPUSCULAR HGB CONC 33.2 g/dL (32.0-36.0); MEAN CORPUSCULAR VOLUME 88.6 fL (81.0-99.0); MEAN PLATELET VOLUME 10.1 fL (7.9-10.8); MONOCYTES # (AUTO) 0.5 10^3/uL (0.0-1.0); MONOCYTES % (AUTO) 7.2 %; NEUTROPHILS # (AUTO) 5.4 10^3/uL (1.5-6.6); NEUTROPHILS % (AUTO) 71.8 %; PLT - PLATELET COUNT 327 10^3/uL (130-450); RED BLOOD COUNT 5.07 10^6/uL (4.20-5.40); RED CELL DISTRIBUTION WIDTH 12.6 % (12.0-15.0); WHITE BLOOD COUNT 7.5 x10^3/uL (4.8-10.8)
[2020-06-25 23:09] LABS: ALBUMIN 4.8 g/dL (3.2-5.5); ALBUMIN/GLOBULIN RATIO 1.3 (1.0-2.2); BILIRUBIN,TOTAL 0.6 mg/dL (0.2-1.0); CALCIUM 9.6 mg/dL (8.5-10.3); CREATININE 0.7 mg/dL (0.4-1.0); POTASSIUM 3.9 mmol/L (3.5-5.0); TOTAL PROTEIN 8.5 g/dL (6.7-8.2)
[2020-06-26 00:08] LABS: BILIRUBIN,URINE NEGATIVE (NEGATIVE); GLUCOSE, URINE (UA) NEGATIVE (NEGATIVE); KETONES,URINE (UA) NEGATIVE (NEGATIVE); LEUKOCYTE ESTERASE, URINE NEGATIVE (NEGATIVE); NITRITE,URINE NEGATIVE (NEGATIVE); OCCULT BLOOD,URINE TRACE-LYSE (NEGATIVE); PROTEIN,URINE NEGATIVE (NEGATIVE); UROBILINOGEN,URINE 0.2 (NORMAL) E.U./dL (NORMAL)
[2020-06-26 00:10] LABS: CLARITY,URINE CLEAR (CLEAR); HCG UR QUAL NEGATIVE
[2020-06-26] MEDS ORDERED: SODIUM CHLORIDE 0.9% 1,000 ML IV STA (01:16)
[2020-06-26] MEDS ORDERED: KETOROLAC 30 MG/ML VIAL IVP STA (01:17)
[2020-06-26] MEDS ORDERED: IOVERSOL 320 100 ML VIAL IVP ONE ×2 (01:31→01:55)
[2020-06-26 02:51] LABS: INFECTIOUS MONONUCLEOSIS NEGATIVE (Negative)
[2020-06-26] MEDS ORDERED: HYDROcod/ACET 5/325 Prepack 4 PO STA (03:10)
[2020-06-26] MEDS ORDERED: MORPHINE 2 MG/ML CARPUJECT IVP STA (03:10)
--- NOTE | 2020-06-26 03:28 | ED Physician Documentation ---
PD HPI ABD PAIN - Stated complaint Stated Complaint: LT SIDE PX - Chief complaint Chief Complaint: Abd Pain - History obtained from History obtained from: Patient - History of Present Illness Timing - onset: Yesterday Timing - duration: Days (2) Timing - details: Gradual onset, Still present Quality: Cramping, Aching, Pain Location: LUQ, Other (also noted left side of neck with some tenderness and mild swelling.) Radiation: Chest, Left shoulder Improved by: No: Eating Worsened by: Breathing, Palpation (upper abd). No: Eating Associated symptoms: Nausea, Loss of appetite, Other (no illness with family members. Children at home are feeling well.). No: Fever, Vomiting, Diarrhea, Constipation, Near syncope / syncope, Weight loss Similar symptoms before: Has not had sx before Review of Systems Constitutional: reports: Fever, Myalgias, Fatigue. denies: Chills Nose: denies: Rhinorrhea / runny nose, Congestion Throat: denies: Sore throat, Swollen tonsils Cardiac: denies: Palpitations Respiratory: reports: Cough (minimal few times). denies: Dyspnea, Wheezing GI: reports: Abdominal Pain, Nausea. denies: Vomiting, Constipation, Diarrhea : denies: Dysuria, Frequency Skin: denies: Rash, Lesions Neurologic: denies: Generalized weakness, Near syncope PD PAST MEDICAL HISTORY - Past Medical History Past Medical History: No Cardiovascular: None Respiratory: None Neuro: None Endocrine/Autoimmune: None GI: GERD : None Musculoskeletal: None - Past Surgical History Past Surgical History: Yes Ortho: Other - Present Medications Home Medications: Ambulatory Orders Medication Instructions Recorded Confirmed HYDROcod/ACETAM 5/325 [[place] 5/325] 1 ea PO Q6H PRN #12 tablet 06/26/20 Naproxen Sodium [Anaprox Ds] 550 mg PO BID #20 tablet 06/26/20 - Allergies Allergies/Adverse Reactions: Allergies Allergy/AdvReac Type Severity Reaction Status Date / Time No Known Drug Allergies Allergy Verified 06/25/20 22:36 - Social History Does the pt smoke?: Yes Smoking Status: Current every day smoker Does the pt drink ETOH?: No Does the pt have substance abuse?: No - Immunizations Immunizations are current?: Yes - POLST Patient has POLST: No PD ED PE NORMAL - Vitals Vital signs reviewed: Yes - General General: Alert and oriented X 3, No acute distress, Well developed/nourished - HEENT HEENT: Ears normal, Moist mucous membranes, Pharynx benign - Neck Neck: Supple, no meningeal sign, Other (left anterior cervical area with mild swelling and moderate tenderness lymph node. Supraclavicular area also some tender without node felt. No rash. ) - Cardiac Cardiac: RRR, No murmur - Respiratory Respiratory: Clear bilaterally - Abdomen Abdomen: Normal bowel sounds, Soft, Non distended, Other (Tender LUQ with local guarding. Spleen seems large to percussion. ) - Back Back: No CVA TTP, No spinal TTP - Derm Derm: Normal color, Warm and dry, No rash - Neuro Neuro: Alert and oriented X 3, No motor deficit, Normal speech Results - Vitals Vitals: Vital Signs - 24 hr 06/25/20 06/26/20 06/26/20 22:32 00:18 01:08 Temperature 37.6 C 37.8 C Heart Rate 122 H 92 94 Respiratory 18 16 16 Rate Blood Pressure 160/92 H 127/93 H 124/89 H O2 Saturation 100 97 99 06/26/20 06/26/20 06/26/20 01:55 02:56 03:45 Temperature 37.2 C 37.1 C Heart Rate 83 83 81 Respiratory 16 15 16 Rate Blood Pressure 116/80 116/80 122/85 H O2 Saturation 98 99 98 Oxygen O2 Source Room air - Labs Labs: Laboratory Tests 06/25/20 06/25/20 06/25/20 22:41 22:52 22:52 WBC 7.5 RBC 5.07 Hgb 14.9 Hct 44.9 MCV 88.6 MCH 29.4 MCHC 33.2 RDW 12.6 Plt Count 327 MPV 10.1 Neut # (Auto) 5.4 Lymph # (Auto) 1.5 [place] # (Auto) 0.5 Eos # (Auto) 0.0 Baso # (Auto) 0.1 Absolute Nucleated RBC 0.00 Nucleated RBC % 0.0 Sodium 139 Potassium 3.9 Chloride 105 Carbon Dioxide 24 Anion Gap 10.0 BUN 8 Creatinine 0.7 Estimated GFR (MDRD) 105 Glucose 106 H Calcium 9.6 Total Bilirubin 0.6 AST 29 ALT 34 Alkaline Phosphatase 108 Total Protein 8.5 H Albumin 4.8 Globulin 3.7 Albumin/Globulin Ratio 1.3 Lipase 30 Urine Color YELLOW Urine Clarity CLEAR Urine pH 7.0 Ur Specific [place] 1.010 Urine Protein NEGATIVE Urine Glucose (UA) NEGATIVE Urine Ketones NEGATIVE Urine Occult Blood TRACE-LYSE Urine Nitrite NEGATIVE Urine Bilirubin NEGATIVE Urine Urobilinogen 0.2 (NORMAL) Ur Leukocyte Esterase NEGATIVE Ur Microscopic Review NOT INDICATED Urine Culture Comments NOT INDICATED Urine HCG, Qual NEGATIVE Infectious [place] Assay 06/25/20 22:52 WBC RBC Hgb Hct MCV MCH MCHC RDW Plt Count MPV Neut # (Auto) Lymph # (Auto) [place] # (Auto) Eos # (Auto) Baso # (Auto) Absolute Nucleated RBC Nucleated RBC % Sodium Potassium Chloride Carbon Dioxide Anion Gap BUN Creatinine Estimated GFR (MDRD) Glucose Calcium Total Bilirubin AST ALT Alkaline Phosphatase Total Protein Albumin Globulin Albumin/Globulin Ratio Lipase Urine Color Urine Clarity Urine pH Ur Specific [place] Urine Protein Urine Glucose (UA) Urine Ketones Urine Occult Blood Urine Nitrite Urine Bilirubin Urine Urobilinogen Ur Leukocyte Esterase Ur Microscopic Review Urine Culture Comments Urine HCG, Qual Infectious [place] Assay NEGATIVE - Rads (name of study) chest xray Radiology: Prelim report reviewed (no acute process), See rad report abd/pelvic CT Radiology: Prelim report reviewed (splenomegaly at 14 cm. No bleeding/infarct. No free fluid. Lower lung appears normal. ), See rad report PD MEDICAL DECISION MAKING - ED course Complexity details: reviewed results, considered differential (has left shoulder and LUQ abd pain, not clear if chest or abd. CXR clear, so got abd CT, which showed splenomegaly. CBC okay so not seeming leukemic, H/H normal so not apparent sequestration. Given the neck tenderness and fever, presume viral illness. Can test mono. Offered COVID but she declined), d/w patient Departure - Departure Disposition: 01 Home, Self Care Clinical Impression: Left upper quadrant abdominal pain, Left-sided chest pain, Splenomegaly Condition: Stable Record reviewed to determine appropriate education?: Yes Follow-Up: Alena Rodriguez ARNP, [employer] [Credentialed Staff Provider] - Prescriptions: Naproxen Sodium [Anaprox Ds] 550 mg PO BID #20 tablet HYDROcod/ACETAM 5/325 [[place] 5/325] 1 ea PO Q6H PRN #12 tablet PRN Reason: Pain Comments: Your pain seems to be coming from an enlarged spleen. Presume this is responding to a viral illness (along with the lymph node pain in neck). No obvious bacterial cause on your testing. I presume this will improve over the next several days or so. You can take some anti-inflammatories and add Tylenol or pain meds as needed. No sports nor contact activities with the enlarged spleen to prevent injury to it. Regular food is okay. Well hydrated. Recheck if not improved over the next several days; return to ER if worsening. Follow up with PMD, or if you don't have one, then with the referral listed at the bottom and tell office personnel that it is a follow up from ER visit. Discharge Date/Time: 06/26/20 03:46
[2020-06-26 03:46] VITALS: BP 122/85
--- NOTE | 2020-06-26 08:24 | XRAY Report ---
PROCEDURE: Chest 1 View X-Ray INDICATIONS: left chest pain TECHNIQUE: One view of the chest was acquired. COMPARISON: None. FINDINGS: Surgical changes and devices: None. Lungs and pleura: No pleural effusions or pneumothorax. Lungs are clear. Mediastinum: Mediastinal contours appear normal. Heart size is normal. Bones and chest wall: No suspicious bony lesions. Overlying soft tissues appear unremarkable. IMPRESSION: 1. No acute cardiopulmonary disease. Reviewed by: Wesley Hardy MD on 06/26/2020 8:23 AM [facility] Approved by: Wesley Hardy MD on 06/26/2020 8:23 AM [facility] Station ID: [id number]
--- NOTE | 2020-06-26 09:04 | CT Report ---
PROCEDURE: Abdomen/Pelvis W INDICATIONS: LUQ abd pain radiating to left shoulder CONTRAST: IV CONTRAST: Optiray 320 ml: 100 PO CONTRAST: *NO PO CONTRAST TECHNIQUE: After the administration of intravenous contrast, 5 mm thick sections acquired from the diaphragms to the symphysis. 5 mm thick coronal and sagittal reformats were acquired. For radiation dose reducti on, the following was used: automated exposure control, adjustment of mA and/or kV according to kirby ent size. COMPARISON: CT abdomen and pelvis with contrast, 07/02/2017. FINDINGS: Image quality: Excellent. ABDOMEN: Lung bases: Lung bases are clear. Heart size is normal. Solid organs: A 5 mm hypodensity is noted in spleen. Spleen is enlarged measuring 16 cm in length. L iver is normal in size. A 9 mm hypodense nodule is seen in the inferior segment of the right hepatic lobe. Gallbladder is normal Biliary system is non dilated. Pancreas enhances normally. No adrenal nodules. Kidneys demonstrate normal size and enhancement, without hydronephrosis. Peritoneum and bowel: Bowel loops demonstrate normal wall thickness and caliber. No free fluid or a ir. Nodes and vessels: No retroperitoneal or mesenteric adenopathy by size criteria. Aorta and inferior vena cava are normal in size. Miscellaneous: No ventral hernias. PELVIS: Genitourinary: Bladder wall thickness is normal. Miscellaneous: No inguinal hernias or adenopathy. Bones: No suspicious bony lesions. No vertebral body compression fractures. IMPRESSION: 1. Splenomegaly. 2. Small hypodense nodules in liver and spleen are indeterminate. If clinically indicated, this could be further evaluated with MRI. No significant discrepancy with the preliminary report. Reviewed by: Madhavi Esteves MD on 06/26/2020 9:03 AM [facility] Approved by: Madhavi Esteves MD on 06/26/2020 9:03 AM [facility] Station ID: [id number]
--- OUTSIDE RECORDS SUMMARY | 2020-07-02 00:55 | EXTERNAL MEDICAL SUMMARY RPT | Continuity of Care Document ---
:1995 Demographics Phone Unavailable Preferred Language Unknown Marital Status Unknown Zoroastrian Affiliation Unknown Race Unknown Ethnic Group Unknown Author Organization [place] Address [address] [phone] Phone Care Team Providers Name Role Phone Lou Unavailable Unavailable Werve Unavailable Unavailable Problems date description facility 2016-08-18 00:00 ENCOUNTER FOR SCREENING, [facility] UNSPECIFIED 2016-09-08 17:20 DYSPNEA, UNSPECIFIED [facility] 2016-[facility]-08 17:20 EPIGASTRIC PAIN [facility] 2016-09-08 17:20 HEADACHE [facility] 2016-09-15 11:31 NICOTINE DEPENDENCE, UNSPECIFIED, [facility] UNCOMPLICATED 2016-09-15 11:31 ACUTE PHARYNGITIS, UNSPECIFIED [facility] 2016-09-15 11:31 ELEVATED BLOOD-PRESSURE READING, [facility] W/O DIAGNOSIS OF HTN 2017-02-26 16:41 RADIAL STYLOID TENOSYNOVITIS [DE [facility] QUERVAIN] 2017-02-26 16:41 PAIN IN LEFT FINGER(S) [facility] [place] 2017-07-02 11:51 NICOTINE DEPENDENCE, UNSPECIFIED, [facility] UNCOMPLICATED 2017-07-02 11:51 UNSPECIFIED OVARIAN CYST, RIGHT [facility] SIDE 2017-07-02 11:51 ELEVATED BLOOD-PRESSURE READING, [facility] W/O DIAGNOSIS OF HTN 2017-07-02 11:51 EPIGASTRIC PAIN [facility] 2017-08-08 19:09 ENCNTR SCREEN FOR INFECTIONS W [facility] SEXL MODE OF TRANSMISS 2018-02-21 16:35 ENCNTR FOR SUPRVSN OF NORMAL PREG, Located within [facility] UNSP, FIRST TRIMESTER 2018-03-07 08:00 ENCOUNTER FOR SCREENING, Located within [facility] UNSPECIFIED 2018-03-10 10:42 ENCOUNTER FOR OTHER SPECIFIED [facility] SCREENING 2018-03-10 10:42 ENCOUNTER FOR SCREENING, Located within [facility] UNSPECIFIED 2018-04-04 15:53 ENCNTR SCREEN FOR INFECTIONS [facility] SEXL MODE OF TRANSMISS 2018-04-25 12:41 ENCOUNTER FOR SCREENING, Located within [facility] UNSPECIFIED 2018-04-25 12:41 19 WEEKS GESTATION OF [facility] 2018-07-16 15:13 UTERINE SIZE-DATE DISCREPANCY, [facility] THIRD TRIMESTER 2018-07-16 15:13 31 WEEKS GESTATION OF [facility] 2018-08-02 08:00 ENCOUNTER FOR SCREENING [facility] FOR MACROSOMIA 2018-08-15 13:06 MATERNAL CARE FOR EXCESS [facility] GROWTH, THIRD TRIMESTER, [facility] 2018-08-15 13:06 ENCOUNTER FOR SCREENING [facility] FOR MACROSOMIA 2018-08-15 13:06 35 WEEKS GESTATION OF [facility] 2018-08-15 16:14 STATE, INCIDENTAL [facility] 2018-09-05 16:08 MACROSTOMIA [facility] 2018-09-05 16:08 ENCOUNTER FOR PREPROCEDURAL [facility] LABORATORY EXAMINATION 2018-09-06 07:18 ANXIETY DISORDER, UNSPECIFIED [facility] 2018-09-06 07:18 ATTENTION-DEFICIT HYPERACTIVITY [facility] DISORDER, UNSPECIFIED TYPE 2018-09-06 07:18 GASTRO-ESOPHAGEAL REFLUX DISEASE [facility] WITHOUT ESOPHAGITIS 2018-09-06 07:18 GESTATNL HTN WITHOUT SIGNIFICANT [facility] PROTEIN, COMP [place] 2018-09-06 07:18 GESTATIONAL DIABETES MELLITUS IN [facility] [place], UN[facility] CONTROL 2018-09-06 07:18 MATERNAL CARE FOR EXCESS [facility] GROWTH, THIRD TRIMESTER, [facility] 2018-09-06 07:18 SMOKING (TOBACCO) COMPLICATING [facility] [place] 2018-09-06 07:18 OTHER MENTAL DISORDERS [facility] COMPLICATING [place] 2018-09-06 07:18 ENCOUNTER FOR STERILIZATION [facility] 2018-09-06 07:18 SINGLE LIVE [facility] 2018-09-06 07:18 39 WEEKS GESTATION OF [facility] 2020-06-25 22:23 NICOTINE DEPENDENCE, UNSPECIFIED, [facility] UNCOMPLICATED 2020-06-25 22:23 CERVICALGIA [facility] 2020-06-25 22:23 CHEST PAIN, UNSPECIFIED [facility] 2020-06-25 22:23 LEFT UPPER QUADRANT PAIN [facility] 2020-06-25 22:23 SPLENOMEGALY, NOT ELSEWHERE [facility] CLASSIFIED 2020-06-25 22:23 FEVER, UNSPECIFIED [facility] Allergies date description facility NO ALLERGY INFORMATION AVAILABLE [facility] P[place] [facility] NO KNOWN ALLERGIES [facility] No Known Drug Allergies [facility] Results Social History date description facility [id number]
== END 2020-06-26 03:46 | disposition home or self-care (01) ==
LOC: ED 22:23
DX: R10.12 Left upper quadrant pain (principal); R07.9 Chest pain, unspecified; R16.1 Splenomegaly, not elsewhere classified; M54.2 Cervicalgia; R50.9 Fever, unspecified; F17.200 Nicotine dependence, unspecified, uncomplicated
CPT/HCPCS: 36415; 71045; 74177; 80053; 81003; 81025; 83690; 85025; 86308; 96374; 96375; 99284; Q9967; 81001; 87086